=== PATIENT | female | born 1970 | race African-American/Black ===

== ENCOUNTER 2018-07-30 10:07 | Outpatient (CLI) | payer OTHER ==
--- NOTE | 2018-07-30 11:13 | RAD ---
TWO VIEWS CHEST: Comparison: 10-14-07 History: Disability exam; chest pain. FINDINGS: Two views of the chest shows an enlarged but stable cardiomediastinal silhouette. The patient is stat us post sternotomy. There is no evidence of consolidation, mass, or pleural effusion. The bones are u nremarkable. IMPRESSION: Stable cardiomegaly. POS: [facility]
== END 2018-07-30 10:08 | disposition home or self-care (01) ==
LOC: BICRAD 10:07
PROVIDERS: ATTEND Internal Medicine
DX: Z02.71 Encounter for disability determination (principal); I51.7 Cardiomegaly
CPT/HCPCS: 71046

== ENCOUNTER 2020-11-29 13:57 | Outpatient (CLI) | payer OTHER | END 2020-11-29 13:58 | disposition home or self-care (01) | LOC: BICRAD 13:57 | PROVIDERS: ATTEND Nurse Practitioner Family | DX: M25.511 Pain in right shoulder (principal); L97.929 Non-pressure chronic ulcer of unspecified part of left lower leg with unspecified severity | CPT/HCPCS: 93970 ==

== ENCOUNTER 2022-12-11 15:27 | Outpatient (CLI) | payer OTHER | END 2022-12-11 15:28 | disposition home or self-care (01) | LOC: RAD-FRANK 15:27 | PROVIDERS: ATTEND Nurse Practitioner Family | DX: M79.671 Pain in right foot (principal) ==

== ENCOUNTER 2023-11-09 18:29 | Emergency (ER) | payer OTHER, BC ==
[2023-11-09] MEDS ORDERED: Boostrix 0.5 ML (Tdap) VIAL (>/=7 yrs of age) ONE (19:03)
[2023-11-09] MEDS ORDERED: CEFAZOLIN 2 GM VIAL ONE (19:36)
[2023-11-09] MEDS ORDERED: Sodium Chloride 0.9% 100 ML ONE (19:37)
[2023-11-09 19:43] LABS: #Basophils 0.04 10x3/uL (0.0-0.2); %Basophils 0.8 % (0.0-1.0); %Eosinophils 6.3 % (0.0-10.0); %Lymphocytes 43.8 % (21.0-51.0); %Monocytes 6.7 % (0.0-10.0); %Neutrophils 42.2 % (42.0-75.0); Hematocrit 36.8 % (36.0-47.0); Hemoglobin 12.2 g/dL (12.0-16.0); Mean Corpuscular HGB CONC 33.2 g/dL (32.0-36.0); Mean Corpuscular Hemoglobin 27.9 pg (27.0-31.0); Mean Platelet Volume 9.5 fL (7.4-10.4); Platelet Count 215 10x3/uL (130-400); RBC Distribution Width 14.5 % (11.5-14.5); Red Blood Cell (RBC) Count 4.38 mill/uL (4.20-5.40)
[2023-11-09 20:03] LABS: ALT (SGPT) 15 U/L (8-55); AST (SGOT) 16 U/L (5-34); Albumin 3.6 g/dL (3.5-5.0); Alkaline Phosphatase 95 U/L (40-110); Anion Gap 13 mmol/L (10-20); BUN (Urea Nitrogen) 13 mg/dL (9.8-20.1); Bilirubin, Total 0.3 mg/dL (0.2-1.2); Calc. Creatinine Clearance 0 mL/min (70-130); Calcium 9.4 mg/dL (7.8-10.44); Carbon Dioxide 25 mmol/L (22-29); Chloride 108 mmol/L (98-107); Estimated GFR 84; Globulin 3.1 g/dL (2.4-3.5); Glucose 91 mg/dL (70-105); Potassium 3.6 mmol/L (3.5-5.1); Protein, Total 6.7 g/dL (6.0-8.3); Sodium 142 mmol/L (136-145)
== END 2023-11-09 20:32 | disposition home or self-care (01) ==
LOC: ERS 18:29
DX: S91.341A Puncture wound with foreign body, right foot, initial encounter (principal); I10 Essential (primary) hypertension; E11.9 Type 2 diabetes mellitus without complications; Z23 Encounter for immunization; Z55.6 Problems related to health literacy; W45.0XXA Nail entering through skin, initial encounter
CPT/HCPCS: 28190; 80053; 85025; 90471; 90715; 96374; J3490